=== PATIENT | female | born 1950 | race Native Hawaiian/Other Pacific Islander ===

== ENCOUNTER 2020-03-30 20:24 | Emergency (ER) | payer OTHER ==
[~2020-03-30] VITALS: Ht 160 cm; Wt 79.4 kg
[2020-03-30 20:47] LABS: PLATELET COUNT 271 K/uL (152-353)
[2020-03-30 20:53] LABS: POTASSIUM 3.6 mmol/L (3.6-5.2); SODIUM 142 mmol/L (136-145)
[2020-03-30 22:15] VITALS: BP 160/85; TEMP 98.2
== END 2020-03-30 22:15 | disposition home or self-care (01) ==
LOC: ED 20:24
PROVIDERS: Emergency Medicine Emergency Medical Services
DX: J45.901 Unspecified asthma with (acute) exacerbation (principal); R55 Syncope and collapse
CPT/HCPCS: 80053; 83880; 84484; 85027; 93005; 96360; 96375; 99284; J1100